=== PATIENT | female | born 1980 | race Two or more races ===

== ENCOUNTER 2018-09-14 00:15 | Emergency (ER) | payer OTHER ==
[~2018-09-14] VITALS: Ht 172.7 cm; Wt 103.4 kg
[~2018-09-14 00:15] MED LIST: ACETAMINOPHEN500 M1 PO; COLACE100 MG PO; Ferro-Plex CAPLET PO; NABUMETONE750 MG PO; PRENATAL DHA200 MG PO; PRENATAL TABLE1 EAC1 PO
[2018-09-14] MEDS ORDERED: IBUPROFEN800 MG PO (14:07)
[2018-09-14] MEDS ORDERED: CYTOTEC200 MCG PO (14:16)
== END 2018-09-14 14:44 | disposition home or self-care (01) ==
LOC: ER 00:15
DX: O03.9 Complete or unspecified spontaneous abortion without complication (principal); N83.292 Other ovarian cyst, left side

== ENCOUNTER → 2019-11-30 | Outpatient (CLI) | payer OTHER ==
[~2019-11-30] MED LIST changes: +CYTOTEC200 MCG PO; +IBUPROFEN800 MG PO
== END | disposition home or self-care (01) ==
LOC: PRENATAL 11:00
DX: O36.80X1 Pregnancy with inconclusive fetal viability, fetus 1 (principal); O09.521 Supervision of elderly multigravida, first trimester; Z36.89 Encounter for other specified antenatal screening

== ENCOUNTER → 2020-01-15 | Outpatient (CLI) | payer OTHER | END | disposition home or self-care (01) | LOC: PRENATAL 08:52 | PROVIDERS: ATTEND Obstetrics & Gynecology | DX: O35.0XX1 Maternal care for (suspected) central nervous system malformation in fetus, fetus 1 (principal); O35.3XX1 Maternal care for (suspected) damage to fetus from viral disease in mother, fetus 1; O09.522 Supervision of elderly multigravida, second trimester ==

== ENCOUNTER → 2020-04-12 | Outpatient (CLI) | payer OTHER | END | disposition home or self-care (01) | LOC: PRENATAL 10:29 | PROVIDERS: ATTEND Obstetrics & Gynecology Maternal & Fetal Medicine | DX: O26.843 Uterine size-date discrepancy, third trimester (principal); O36.8131 Decreased fetal movements, third trimester, fetus 1; O24.410 Gestational diabetes mellitus in pregnancy, diet controlled; Z36.89 Encounter for other specified antenatal screening; Z3A.33 33 weeks gestation of pregnancy ==

== ENCOUNTER → 2020-05-10 | Outpatient (CLI) | payer OTHER | END | disposition home or self-care (01) | LOC: PRENATAL 08:19 | PROVIDERS: ATTEND Obstetrics & Gynecology Maternal & Fetal Medicine | DX: O26.843 Uterine size-date discrepancy, third trimester (principal); O36.8131 Decreased fetal movements, third trimester, fetus 1; O24.410 Gestational diabetes mellitus in pregnancy, diet controlled; Z36.89 Encounter for other specified antenatal screening; Z3A.36 36 weeks gestation of pregnancy ==